=== PATIENT | male | born 1955 | race Caucasian/White ===

== ENCOUNTER 2016-10-28 06:33 | Inpatient (IN) | payer MEDICAID ==
[~2016-10-28] VITALS: Ht 203.2 cm; Wt 121.6 kg
--- NOTE | ~2016-10-28 | DS ---
PATIENT'S NAME: MOOKIE MOHAN [facility] AGE: 61 Y [address] ROOM: G6311 [place], [place] [address] LOCATION: GPCU ADMIT DATE: 10/28/2016 Discharge Summary DISCHARGE DATE: 10/30/2016 FAMILY PHYSICIAN: Rodrigue Garcia MD ATTENDING PHYSICIAN: Ml Pal ADMITTING DIAGNOSES: 1. Non-ST segment elevation myocardial infarction. 2. Ischemic cardiomyopathy. 3. Atrial fibrillation. DISCHARGE DIAGNOSES: 1. Ischemic cardiomyopathy with ejection fraction 10% on discharge with LifeVest and core measures. 2. Atrial fibrillation, on Eliquis. 3. Non-ST segment elevation myocardial infarction. SECONDARY DIAGNOSES: 1. Left ventricular apical thrombus, on apixaban. 2. Benign prostatic hyperplasia. 3. Hypertension. 4. History of coronary artery disease. PROCEDURE: Coronary angiogram done on 10/29/2016. CONSULTATION: Cardiology. HISTORY OF PRESENT ILLNESS: The patient is a 61-year-old male, who presented with roughly 10-day history of chest tightness. Chest tightness was associated with dyspnea. The patient was seen at [facility] and was transferred here for further evaluation. At [facility], the patient did not show any acute ischemia. EKG showed new onset of atrial fibrillation and troponin of 0.81. The patient was transferred here for further cardiac evaluation. The patient was admitted and was started on heparin drip. There was a concern for a PE. The patient had a CT angiogram, which is negative for PE. The patient had an echocardiogram that shows ejection fraction of 20%, which was decreased from 35%. The patient had coronary angiogram done on 10/29/[address] Rachna Trivedi, which showed proximal LAD stent patent and mid RCA 40%, unchanged from previous test, which was 10/2015. Apical thrombus was also noted. The patient was transferred back to the floor. The patient's chest pain resolved during stay. The patient's anticoagulation was changed to apixaban. Cardioversion was not done due to the patient's LV thrombus. The patient was started on beta-shantell, Entresto, and Lasix. Plan to continue aspirin and statin. Also, the patient was seen and evaluated by [facility]. The patient was discharged on [employer] for approximately to PATIENT'S NAME: MOOKIE MOHAN [facility] AGE: 61 Y [address] ROOM: G63[address] [place], [place] [address] LOCATION: GPCU ADMIT DATE: 10/28/2016 Discharge Summary DISCHARGE DATE: 10/30/2016 FAMILY PHYSICIAN: Rodrigue Garcia MD ATTENDING PHYSICIAN: Ml Pal have it for 3 months until re-evaluated as outpatient for possible ICD placement. The patient received education from [employer]. CONDITION: Stable. DISPOSITION: Home. DISCHARGE MEDICATIONS: Please see MAR. DISCHARGE INSTRUCTIONS: Follow up with Cardiology and primary care physician. RECOMMENDATIONS: Continue to use LifeVest. FOLLOWUP: To follow up with Cardiology, Dr. Rachna Trivedi and the primary care physician. The patient to have repeat renal function panel on November 05, 2016 before he sees his primary care physician. Greater than 30 minutes was spent on discharge planning. MD MEHUL JONES/gonzalo /[id number] d: 10/31/16 0451 t: 11/03/16 0935, DISCHARGE SUMMARY
--- NOTE | ~2016-10-28 | ECHO ---
Transthoracic Echocardiography Report (TTE) Demographics Patient Name MOOKIE MOHAN Date of Study 10/28/2016 Patient Number [id number] Visit Number [id number] Date of 1955 Room Number G6311 Gender Male Number Age 61 year(s) Referring Kae Bull Mine Inspector Darrel Landry RVT Physician MD Jhoana Spain MD Physician Interpreting Kae Bull Ring Making Machine Operator Physician Supervising Ordering Jhoana Spain MD, MD/MLP Physician Nurse [employer] Service Porter Conclusions Summary Technically difficult exam. The estimated left ventricular ejection fraction is 20%.The left ventricle is moderately dilated and globular .Mild concentric left ventricular hypertrophy.Moderate inferoposterior hypokinesia and akinesia involving the rest of LV segments. Moderate LA dilatation. Mild MR. Mobile LV apical thrombus. Mildly reduced right ventricular function. The right atrium is mildly dilated. Mild mitral annular calcification. Mild tricuspid regurgitation by color Doppler. Trivial pulmonic valve regurgitation by color Doppler. Procedure Type of Study TTE procedure:2D Echocardiogram, Echo with Contrast. Procedure Date Date: 10/28/2016 Start: 08:58 AM Study Location: Inpatient Portable Technical Quality: Limited visualization Indications:Atrial fibrillation. Patient Status: Routine Contrast Medium: Definity. Amount - 2 ml HR: 85 bpm BP: 112/84 mmHg Allergies - Penicillin. M-Mode/2D Measurements LV Diastolic Dimension: 6.51 cm LV Systolic Dimension: 5.55 cm LV Septum Diastolic: 1.12 cm LV PW Diastolic: 1.4 cm AO Root Dimension: 2.6 cm Cardiac Output: 2.97 l/min AV Cusp Separation: 2.5 cm RV Diastolic Dimension: 3.13 cm LVOT: 2.1 cm LVOT VTI: 10.1 cm RV Base: 3.51 cm LV Stroke volume: 34.96 ml RV Length: 7.17 cm TAPSE: 1.18 cm TDI-S': 8.77 cm/s Doppler Measurements AV Peak Velocity: 1.02 m/s MV Peak E-Wave: 0.81 m/s AV Peak Gradient: 4.16 mmHg AV Mean Gradient: 2 mmHg MV P1/2t: 41 msec LVOT Peak Velocity: 0.61 m/s TR Velocity:2.99 m/s PV Peak Velocity: 0.81 m/s TR Gradient:35.76 mmHg PV Peak Gradient: 2.6 mmHg E' Septal Velocity: 0.06 m/s E' Lateral Velocity: 0.09 m/s Findings Left Ventricle The left ventricle is mildly dilated . Mild concentric left ventricular hypertrophy.LVEF:20%.Moderate inferoposterior segment hypokinesia.Rest of LV segments are severely hypokinetic. Right Ventricle Mildly reduced right ventricular function. Left Atrium The left atrium is moderately dilated. Right Atrium The right atrium is mildly dilated. IVC not visualized due to poor subcostal window. Mitral Valve Mild mitral annular calcification. Mild mitral regurgitation by color Doppler. Aortic Valve Normal aortic valve structure and function. Tricuspid Valve Mild tricuspid regurgitation by color Doppler. Pulmonic Valve Trivial pulmonic valve regurgitation by color Doppler. Pericardial Effusion No evidence of pericardial effusion. Miscellaneous Visualized portions of the aortic root and ascending aorta appear normal in size. Pleural Effusion No evidence of pleural effusion. Contractility Score LV regional wall motion:(0-Non visualized 1-Normal 2-Hypokinesis 3-Akinesis 4-Dyskinesis 5-Aneurysm) Signature dtt: Ml Pal dtd: 10/28/16 0858 Physician Self Edit
--- NOTE | ~2016-10-28 | CATH ---
Cardiac Diagnostic Report Demographics Patient Name MARQUES MILES Gender Male Date of 1955 Age 61 year(s) Patient Number [id number] Date of Study 10/29/2016 Visit Number [id number] Room Number G63[address] [place] [id number] Ht 203.2 cm Wt 121.56 kg Referring [facility] Primary Physician Physician Rachna KEY Performing [facility] Secondary Physician Physician Rachna KEY Diagnostic [facility] Assisting Physician Physician Rachna KEY Interventional Physician Rendering Equipment Tender Physician Findings and Conclusions Diagnostic Findings and Conclusion Proximal LAD stent is patent Mid RCA 40% (unchanged from previous cath in 10/2015) Diagnostic Recommendations Continue guideline directed medical therapy for CAD and CHF Life vest upon dismissal, recheck LVEF 90 days after optimizing bb/kar i and assess need for ICD Patient 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 Informed consent was obtained in the written and verbal form after the risks and benefits were explained. The patient had no further questions and agreed to proceed. The planned puncture-incision site(s) were shaved and prepped with ChloraPrep and draped in the usual sterile manner. Conscious sedation, supplemental oxygen, and pain control medications were delivered by a registered nurse under physician guidance. Surface ECG rhythm, blood pressure measurement, and pulse oximetry were monitored throughout the procedure. Arterial access. The access site was infiltrated with lidocaine. The vessel was entered with the Seldinger technique. A sheath was advanced into the vessel and used for catheter placement. Selective left coronary angiography. A catheter was advanced into the left coronary vessel ostium under Fluoroscopic guidance. Contrast was injected by hand. Images were obtained in multiple projections. Selective right coronary angiography. A catheter was advanced into the right coronary vessel ostium under fluoroscopic guidance. Contrast was injected by hand. Images were obtained in multiple projections. Arterial artery hemostasis was achieved. The patient was transferred to a regular nursing floor via cart accompanied by a nurse. The patient left the laboratory in stable condition. Diagnostic Cath Status: Urgent Procedure Procedure Type Diagnostic procedure:Angiography:, Coronary Angios Indications: Angina and Atrial fibrillation. The procedure was explained in detail to the patient. Risks, complications and alternative treatments were reviewed. Written consent was obtained. Medications Reviewed with Patient prior to Procedure. Angiographic Findings Dominance: Right Cardiac Arteries and Lesion Findings LMCA: Normal (0% Stenosis). LAD: Abnormal.prox stent patent mid 20% Diag wnlThere is a previous stent on Mid LAD Proximal subsection. Lesion on Mid LAD: Mid subsection.20% stenosis . LCx: Abnormal.prox 10% OM wnl Lesion on Prox CX: Proximal subsection.10% stenosis . RCA: Abnormal.mid 40% (unchanged) PL and PDA wnl Lesion on Mid RCA: Mid subsection.40% stenosis . Coronary Tree Procedure Data Procedure Date Date: 10/29/2016Start: 10:15 AMEnd: 10:45 AM Entry Locations - Retrograde Percutaneous access was performed through the Right Radial artery (Primary location). A 6 Fr sheath was inserted. Hemostasis was successfully obtained using Mechanical Compression. Closure Comments: r band with 10 cc air in band deployed by Ramona. Procedure Medications Order and Administration + + + + + !Time !Medication !Dosage !Route ! + + + + + !10/29/2016 10:14 AM !Versed !0.5 mg !I.V. ! + + + + + !10/29/2016 10:14 AM !Fentanyl !25 mcg !I.V. ! + + + + + !10/29/2016 10:19 AM !Versed !0.5 mg !I.V. ! + + + + + !10/29/2016 10:24 AM !Heparin (ACC_3) !4000 units !I.V. bolus ! + + + + + Devices Used - A5 Fr. BS MPA2 Diag. Catheterwas used for:Right coronary angiography. - A6 Fr. SCR 3.5 Guide Catheterwas used for:Right coronary angiography. - A6 Fr. XB 3.5 Guide Catheterwas used for:Left coronary angiography. Contrast Material - Isovue 89107 ml Fluoroscopy Time: Diagnostic: 6:42 minutes. Total: 6:42 minutes. Fluoroscopy Dose: Diagnostic: 862 mGy. Total: 862 mGy. Estimated Blood Loss: 10 ml. Medical History Allergies - Penicillin. - Penicillin. Risk Factors The patient risk factors include:prior PCI on 11/08/2015;obesity, physical activity, hypercholesterolemia, treated hypertension, family history of premature CAD, last creatinine: 0.9 mg/dl, creatinine clearance: 146.33 ml/min, dyslipidemia, former tobacco use, prior heart failure and prior CT . Admission Data Admission Date: 10/28/2016 Admission Time: 07:26 AM Admit Source: Transfer acute care facility Admission Medications + +------+------+ + + + + !Medication !Dosage!Times !Last !Last !Administered !Comments ! ! ! !Per !Delivery !Delivery ! ! ! ! ! !Day !Date !Time ! ! ! + +------+------+ + + + + !Beta ! ! ! ! ! ! ! !Aidee ! ! ! ! ! ! ! !(any) ! ! ! ! ! ! ! + +------+------+ + + + + !Aspirin ! ! ! ! ! ! ! !(any) ! ! ! ! ! ! ! + +------+------+ + + + + !Statin ! ! ! ! ! ! ! !(any) ! ! ! ! ! ! ! + +------+------+ + + + + Clinical Evaluation Leading to Procedure - The patient's CAD presentation was assessed as: Unstable angina. - The patient's anginal syndrome during the past two weeks was assessed as: Class IV according to the [place] Cardiovascular Society Classification System (CCS). Anti-anginal medications were prescribed during the past two weeks. The medication is: Beta Blockers. - The patient has been in a state of heart failure within the past two weeks. - The patient's heart failure status was assessed as NYHA Class II, with CHF symptoms of ROMERO. 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 VA LV function assessed as:Abnormal. Ejection Fraction - Method: Echocardiography. EF%: 10. Hemodynamics Condition: Rest O2 Consumption: Estimated: 322.00Heart Rate: 88 bpm Pressures (mmHg) +-----+ + !Site !Pressure ! +-----+ + !AO !107/77 (92) ! +-----+ + Shunts Oxygen Values O2 Capacity 189.04 O2 Consumption 322 Signatures dtt: RACHNA EASTMAN dtd: 10/29/16 1015 Physician Self Edit
--- NOTE | ~2016-10-28 | CON ---
PATIENT'S NAME: MOOKIE MOHAN [facility] AGE: 61 Y [address] ROOM: G63[address] [place], [place] [address] LOCATION: GPCU ADMIT DATE: 10/28/2016 Consultation DISCHARGE DATE: FAMILY PHYSICIAN: PHYSICIAN, UNKNOWN ATTENDING PHYSICIAN: Ml Pal DATE OF CONSULTATION: 10/28/2016 HISTORY OF PRESENT ILLNESS: Mr. Mohan is a 61-year-old male patient who was transferred from [facility] by ground ambulance where he presented with heaviness in his chest along with some shortness of breath. The patient had acute anterior wall ST- elevation AR in October of 2015, which was treated initially with thrombolytic therapy which failed to re-perfuse. The patient underwent rescue PCI with a drug-eluting stent at that time and his discharge EF was 35% to 40%. He completed his cardiac rehab and continues to exercise on a regular basis. He works out on a treadmill for about 22 minutes at 9.6% gradient, walking at 3.6 miles an hour for 22 minutes along with weight training three days a week. Until about 10 days ago, he did not have any symptoms with exercise. However, 10 days back, he started to notice some heaviness in his chest along with significant shortness of breath to the point where he was in functional class III and having been having some orthopnea and paroxysmal nocturnal dyspnea in the last few days. Last night, he could not sleep at all and he eventually ended up going to the emergency room and the heaviness in his chest lasted almost 5-6 hours. In the emergency room at [facility], he was given 2 mg of morphine sulfate and his chest discomfort resolved completely. His troponins were elevated, so he was given aspirin and heparin, and his D-dimer is elevated and so a CT chest PE protocol was done today, which revealed no evidence of pulmonary emboli, but showed some evidence of congestive heart failure. His echo shows his ejection fraction to be 20% with apical thrombus, which is somewhat mobile at this time. The patient had at the time of his AR mostly left arm pain without any chest pain and he was profusely sweating. It almost as appears as if he had left arm pain for almost two full days before he ended up coming to the hospital. He initially mistook the left arm pain for cervical radicular pain which he has had chronically for a number of years. The patient denies any ankle swelling. He is occasionally lightheaded. He does notice some palpitations of short duration, it has been going on for about a year and a half. He is not sure when he went into atrial fibrillation. The patient has no history of hypertension or diabetes. He quit smoking 30 years ago and he is on cholesterol-lowering statins. He denies family history PATIENT'S NAME: MOOKIE MOHAN [facility] AGE: 61 Y [address] ROOM: [address] [place] [id number] LOCATION: [facility] ADMIT DATE: 10/28/2016 Consultation DISCHARGE DATE: FAMILY PHYSICIAN: PHYSICIAN, UNKNOWN ATTENDING PHYSICIAN: Ml Pal premature coronary artery disease. The patient has no history of rheumatic fever. He has a history of heart murmur. At some point, he was told that he had mild congestive heart failure before his discharge last year. MEDICATIONS: 1. Proscar 5 mg at bedtime. 2. Furosemide 40 mg a day. 3. Aspirin 81 mg a day. 4. Atorvastatin 20 mg at bedtime. 5. Carvedilol 3.125 b.i.d. 6. Losartan 25 mg a day. ALLERGIES: PENICILLIN. PAST MEDICAL HISTORY: 1. Neck surgery. 2. Two back surgeries. 3. Left groin lymph node removal. 4. Benign prostatic hypertrophy. 5. DJD of knees. SOCIAL HISTORY: The patient is disabled from his back. He is single. He denies abusing alcohol or recreational drugs now. His appetite has been good. He has lost about 35 pounds in weight since his last year procedure intentionally. FAMILY HISTORY: No premature coronary artery disease. REVIEW OF SYSTEMS: 1. Sinus problems. 2. Corrective lenses. 3. History of heartburns which has gotten better since his weight loss. 4. History of dysphagia in the past, especially in noticeable in the epigastric area which is nonprogressive. 5. History of stomach ulcers with the hematemesis in the distant past. 6. Depression. PHYSICAL EXAMINATION: VITAL SIGNS: On examination, his blood pressure is 136/85, heart rate is 80 and irregular, respirations 20, afebrile. HEENT: Normal. PATIENT'S NAME: MOOKIE MOHAN [facility] AGE: 61 Y [address] ROOM: G[address] [place], [place] [address] LOCATION: GPCU ADMIT DATE: 10/28/2016 Consultation DISCHARGE DATE: FAMILY PHYSICIAN: PHYSICIAN, UNKNOWN ATTENDING PHYSICIAN: lM Pal NECK: Supple with no JVD, thyromegaly, lymphadenopathy, or carotid bruit. PMI is not well located. First and second heart sounds are irregular. There are no added sounds or murmurs. CHEST: Clear to auscultation. ABDOMEN: Soft and nontender. EXTREMITIES: Reveal no edema. CENTRAL NERVOUS SYSTEM: Intact. ASSESSMENT: 1. Coronary artery disease, status post myocardial infarction about a year ago, was treated with rescue PCI. 2. EF last year was 35-40% and now it is 20%. 3. Left ventricular apical thrombus which is mobile. 4. Congestive heart failure clinically at this time. 5. Recent onset of atrial fibrillation, which is most likely what changes clinical condition 10 days back. However what caused his EF to drop is unclear and he probably needs a catheterization. 6. Increased D-dimer checked with a CT chest PE protocol, which was negative for pulmonary embolism. Because of the dye load and as he is pain free, we will keep him n.p.o. tomorrow morning and see if Dr. Murray would be willing to take him to the cath either tomorrow or later. For now, I try to monitor, keep him symptom free on heparin, and keep him on very little fluid intake. We will check his BMP in the morning. Dr. Murray will assume care in the morning. Again, I appreciate this opportunity to participate in the care of Mr. Mohan. MD JOSH PAIGE/gonzalo /[id number] d: 10/28/16 1506 t: 10/28/16 1759, CONSULTATION REPORT
--- NOTE | ~2016-10-28 | ENPV ---
Vascular Lower Extremities DVT Study Procedure Demographics Patient Name MOOKIE MOHAN Date of Study 10/28/2016 Patient Number [id number] Gender Male Date of 1955 Age 61 Visit Number [id number] Height 80 Accession Number [id number] Weight 268.01 Referring Jhoana Spain MD Interpreting Shun Bridges MD Physician Physician Physician Ordering Physician Jhoana Spain MD Slicing Machine Operator/Tender Ceramic Tiler Darrel Landry T Conclusions Summary No evidence of deep vein thrombosis in the lower extremities bilaterally . Procedure Type of Study: Veins:Lower Extremities DVT Study, Venous Duplex Lower Extremity Bilateral. Additional Indications:High D Dimer Appropriate Use Criteria:9 Allergies - Penicillin. - Penicillin. Patient Status:Routine. Study Location:Inpatient Portable. Technical Quality:Adequate visualization. Risk Factors - The patient's risk factor(s) include: dyslipidemia, obesity, lack of physical activity, treated arterial hypertension and prior MN . - The patient has a former tobacco history. - The patient's last creatinine was 0.9 mg/dl. Velocities are measured in cm/s ; Diameters are measured in cm Right Lower Extremities DVT Study Measurements Right 2D and Doppler Measurements + + + + +------+------+ + !Location !Visualized!Compressibility!Thrombosis!Signal!Reflux!Reflux ! ! ! ! ! ! ! !(sec) ! + + + + +------+------+ + !GSV Thigh !Yes !Yes !None !Phasic! ! ! + + + + +------+------+ + !Common !Yes !Yes !None !Phasic! ! ! !Femoral ! ! ! ! ! ! ! + + + + +------+------+ + !Prox !Yes !Yes !None !Phasic! ! ! !Femoral ! ! ! ! ! ! ! + + + + +------+------+ + !Mid Femoral!Yes !Yes !None !Phasic! ! ! + + + + +------+------+ + !Dist !Yes !Yes !None !Phasic! ! ! !Femoral ! ! ! ! ! ! ! + + + + +------+------+ + !Popliteal !Yes !Yes !None !Phasic! ! ! + + + + +------+------+ + !Gastroc !Yes !Yes !None !Phasic! ! ! + + + + +------+------+ + !PTV !Yes !Yes !None !Phasic! ! ! + + + + +------+------+ + !Peroneal !Yes !Yes !None !Phasic! ! ! + + + + +------+------+ + Left Lower Extremities DVT Study Measurements Left 2D and Doppler Measurements + + + + +------+------+ + !Location !Visualized!Compressibility!Thrombosis!Signal!Reflux!Reflux ! ! ! ! ! ! ! !(sec) ! + + + + +------+------+ + !GSV Thigh !Yes !Yes !None !Phasic! ! ! + + + + +------+------+ + !Common !Yes !Yes !None !Phasic! ! ! !Femoral ! ! ! ! ! ! ! + + + + +------+------+ + !Prox !Yes !Yes !None !Phasic! ! ! !Femoral ! ! ! ! ! ! ! + + + + +------+------+ + !Mid Femoral!Yes !Yes !None !Phasic! ! ! + + + + +------+------+ + !Dist !Yes !Yes !None !Phasic! ! ! !Femoral ! ! ! ! ! ! ! + + + + +------+------+ + !Popliteal !Yes !Yes !None !Phasic! ! ! + + + + +------+------+ + !Gastroc !Yes !Yes !None !Phasic! ! ! + + + + +------+------+ + !PTV !Yes !Yes !None !Phasic! ! ! + + + + +------+------+ + !Peroneal !Yes !Yes !None !Phasic! ! ! + + + + +------+------+ + Signature dtt: RODO ESCOBAR dtd: 10/28/16 0947 Physician Dominik Chávez
--- NOTE | ~2016-10-28 | HP ---
PATIENT'S NAME: MOOKIE MOHAN [facility] AGE: 61 Y [address] ROOM: [address] [place], [place] [address] LOCATION: GPCU ADMIT DATE: 10/28/2016 History & Physical DISCHARGE DATE: FAMILY PHYSICIAN: PHYSICIAN, UNKNOWN ATTENDING PHYSICIAN: Ml Pal DATE OF SERVICE: CHIEF COMPLAINT: Chest tightness and also dyspnea on exertion and also at rest. HISTORY OF PRESENT ILLNESS: This is a 61-year-old male, who states that roughly 10 days ago, he has been experiencing chest tightness in the mid chest area, about 3-5/10 in intensity, localized on and off, lasting for few minutes, initially with exertion, but recently has been coming also at rest. At the same time, the chest tightness is also associated with dyspnea, also initially with exertion and right now also progressed with rest. His symptoms worsened last night, that is why the patient went to outside facility in [place] for evaluation. He also says that for the last few weeks, he has been experiencing pain in bilateral posterior calves. He denies any recent long distance travel or any trauma or prolonged immobilization. Over there at the [facility], the patient's EKG did not show any acute ischemia. EKG was also found to have new onset atrial fibrillation that was not diagnosed previously, heart rate was 100 beats per minute. Troponin was found to be elevated, the first set at 0.81, this is troponin I; CPK and CK-MB were normal. His creatinine was found to be 1.33, and his GFR was found to be 54. When compared to his prior blood work in October last year, this is OWEN. D- dimer was also found to be elevated at 3.76 over there. Because of this, the patient was given 1 dose of a full dose aspirin followed by 2 mg IV morphine and also followed by 1 tablet of sublingual nitroglycerin. The patient's chest tightness totally resolved. The patient was also started on IV heparin bolus followed by drip. Due to the concern of ACS and also concern for PE or DVT, the patient was referred here for further care. REVIEW OF SYSTEMS: As mentioned in the history of present illness. All other systems were reviewed and they were negative except those mentioned in the history of present illness. PAST MEDICAL HISTORY: 1. Combined systolic and diastolic heart failure. The most recent echo was on October 28, 2015, which showed EF of 35% to 40% and grade 2 pseudonormal diastolic function. PATIENT'S NAME: MOOKIE MOHAN [facility] AGE: 61 Y [address] ROOM: [id number] [place], [place] [address] LOCATION: [facility] ADMIT DATE: 10/28/2016 History & Physical DISCHARGE DATE: FAMILY PHYSICIAN: PHYSICIAN, UNKNOWN ATTENDING PHYSICIAN: Ml Pal 2. History of STEMI anterolateral leads, status post 1 drug-eluting stent to the proximal LAD. At that time, the cardiac cath on October 27, 2015 showed proximal LAD 100% occlusion and moderate occlusion in mid RCA 50%. 3. Hyperlipidemia. 4. Hypertension. 5. Benign prostatic hypertrophy. ALLERGIES: PENICILLIN, WHICH CAUSES SEIZURE. HOME MEDICATIONS: Currently, it has been reconciled. SOCIAL HISTORY: The patient was a former cigarette smoker. He quit about 20 years ago. He used to smoke about 3 packs per day since he was 10 years' old. He denies any alcohol or any illegal drug use. PAST SURGICAL HISTORY: 1. Status post back and neck surgery in the past. 2. Status post 1 drug-eluting stent to the proximal LAD in October 2015. FAMILY HISTORY: Mother is healthy. Father from stroke at age 67-year-old. He denies any cardiac problem in his mother or his father. PHYSICAL EXAMINATION: VITAL SIGNS: At the time of my dictation, temperature 98, heart rate 80, respirations 20, blood pressure 136/85, and saturation 95% on room air. GENERAL APPEARANCE: Alert and oriented x3. Currently in no acute distress. Also, denies any chest pain. HEENT: Pupils equally round and reactive to light. Extraocular muscles intact. Anicteric sclerae. Nasal turbinates are normal bilaterally. Moist oral mucosa. NECK: No JVD. CARDIOVASCULAR: No murmur, no rubs, no gallops. Normal S1, S2. Regular rate and rhythm. RESPIRATORY: Clear to auscultation. No rales, no rhonchi, no wheezing, no crackles. ABDOMEN: Soft, nontender, nondistended. Bowel sounds present. No mass. EXTREMITIES: No edema in the upper or lower extremities. Some mild tenderness to palpation in bilateral posterior calves. NEUROLOGIC: Grossly nonfocal. SKIN: No ulcer, no rash, no cyanosis. PATIENT'S NAME: MOOKIE MOHAN [facility] AGE: 61 Y [address] ROOM: [id number] [place], [place] [address] LOCATION: GPCU ADMIT DATE: 10/28/2016 History & Physical DISCHARGE DATE: FAMILY PHYSICIAN: PHYSICIAN, UNKNOWN ATTENDING PHYSICIAN: Ml Pal LABORATORY DATA: Currently, all labs are pending, they have just been drawn. Blood work from the outside facility shows white blood cells 9.98, hemoglobin 15, hematocrit 44.9, and platelets 132. Glucose 94, BUN 21, creatinine 1.33, total protein 7.1, albumin 3.6, calcium 9.0, total bilirubin 1.4, ALT 42, AST 18, sodium 138, potassium 4.3, chloride 105, CO2 of 27.8, GFR of 54, anion gap 9.5, alkaline phosphatase 73, CPK 60, CK-MB 0.8, myoglobin 64, troponin 0.81, D- dimer 3.76, magnesium 1.8, INR 1.1, PTT 23.7. IMAGING STUDIES: EKG on admission from the outside facility on October 28, 2016, at 3:42 a.m. shows atrial fibrillation, heart rate of 100, QRS 95. No ST elevation or depression. Repeat EKG here in our facility on arrival on October 28, 2016, at 8:06 a.m. shows atrial fibrillation, heart rate of 75, QRS of [address]- elevation or depression. ASSESSMENT AND PLAN: 1. Regarding his troponin elevation and D-dimer elevation: Differential could be acute coronary syndrome and/or pulmonary embolism or deep vein thrombosis. Plan will be to continue the current IV heparin drip. We will do acute coronary syndrome protocol, and we will get an echo and also EKG if he has chest pain again, and also start a nitroglycerin drip IV if he has chest pain. Currently, he is chest pain free. Cardiology consult for chest tightness. Continue medications with aspirin, Lipitor, and Coreg. The patient's Plavix was stopped last month. 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 N.p.o. for now. I will also get blood work and also go for the CT pulmonary angiogram and also venous duplex ultrasound. Further plan will depend on clinical course. IV morphine p.r.n. for pain as well. We will also cycle cardiac enzymes every 6 hours. In addition for the chest tightness, I will get a chest x- ray as well. 2. Regarding his acute kidney injury: For now, I will give him some IV fluid hydration. He does not look volume overloaded. I will hold the losartan for now in the setting of acute kidney injury. Further plan will depend on clinical course. 3. Regarding his history of combined systolic and diastolic heart failure: Currently, the patient seems euvolemic. ProBNP is pending. The patient is on room air. Lungs are clear. No leg edema. Hold the Lasix for now in the setting of acute kidney injury. Further plan will depend on clinical course. Echo will be done today to see what is his ejection fraction at this time. 4. Regarding his history of ST-segment elevation myocardial infarction, PATIENT'S NAME: MOOKIE MOHAN [facility] AGE: 61 Y [address] ROOM: [address] [address] LOCATION: [facility] ADMIT DATE: 10/28/2016 History & Physical DISCHARGE DATE: FAMILY PHYSICIAN: PHYSICIAN, UNKNOWN ATTENDING PHYSICIAN: Ml Pal status post 1 drug-eluting stent to the left anterior descending artery on October 27, 2015: See #1 for all the details. 5. Regarding his hypertension: Continue home medication as mentioned before. 6. Regarding his hyperlipidemia: Continue Lipitor. We will check A1c and also lipid panel in the morning. 7. Regarding his deep vein thrombosis prophylaxis: The patient is on heparin drip already. 8. He is a full code. Time spent in care on the day of admission 35 minutes, where 15 minutes was spent on the chart review and the remainder of the time was spent on interview, physical examination, and also addressing all the questions and concerns that the patient had, and going over the plan of care with the patient. I answered all of his questions to his satisfaction. I also went over the plan of care in detail with the nurse as well. Further plan will depend on clinical course. MD HAYLEE ACUÑA/gonzalo /[id number] D: [id number] T: [id number] HISTORY & PHYSICAL
[~2016-10-28 06:33] MED LIST: ASPIRIN (CHILDR81 MG PO; COREG 3.1253.125 MG PO; CRESTOR10 MG PO; FLONASE 50 MCG/16 GM NOSE; IBUPROFEN800 MG PO; LASIX40 MG PO; LIPITOR20 M1 PO; LOPRESSOR50 MG; NAPROSYN500 MG PO; NEXIUM40 MG PO; NORCO 5-325 MG1 TAB PO; PLAVIX75 MG PO; PRILOSEC20 MG PO; PROSCAR5 MG PO; TOPROL XL 5050 MG PO; VASOTEC2.5 MG PO; ZOCOR20 MG PO
[2016-10-28] MEDS ORDERED: COZAAR25 MG PO (07:30)
--- NOTE | 2016-10-28 08:00 | NUR ---
Patient admitted from [facility] for increased shortness of breath, chest pressure, and new onset atrial fibrillation. Patient has noticed an increase in shortness of breath over the last 2 weeks. Awoke with chest pressure at 0600 and went to the ED, found to be in A-fib. Transferred here for work-up. Pain free on arrival, remain in a-fib. IV to right forearm with heparin infusing. ORA, VSS. Denies pain, shortness of breath, N/V. History of MS last October with LAD occlusion. CT for PE protocol, echo, venous dopplers, and cardiac consult pending.
[2016-10-28 08:44] LABS: BASOPHIL % 0.5 %; EOSINOPHIL # 0.1 K/uL (0.0-0.5); EOSINOPHIL % 1.1 %; HEMATOCRIT 42.4 % (37.0-53.0); HEMOGLOBIN 13.9 g/dL (11.0-16.0); IMMATURE GRANULOCYTE % 0.3 %; LYMPHOCYTE # 1.3 K/uL (0.8-4.0); LYMPHOCYTE % 17.1 %; MCH 29.9 pg (27.0-34.0); MCHC 32.8 gm/dL (32.0-36.5); MCV 91.2 fl (83.0-98.0); MONOCYTE # 0.7 K/uL (0.0-1.0); MONOCYTE % 9.7 %; NEUTROPHIL # (ANC) 5.4 K/uL (1.4-9.0); NEUTROPHIL % 71.3 %; NRBC % 0 /100WBC (0-0.00); PLATELET COUNT 115 K/uL (150-450); RBC 4.65 M/uL (3.50-5.50); RDW-CV 14.5 % (11.9-14.6); WBC 7.5 K/uL (4.0-11.0)
[2016-10-28 08:47] LABS: PROTIME 11.6 SECONDS (9.8-11.4); PTT 41 SECONDS (25-32)
[2016-10-28 08:55] LABS: ALBUMIN 3.5 gm/dL (3.5-5.0); ALK PHOS 68 IU/L (33-138); ALT 37 IU/L (12-78); ANION GAP 10.2 (10.0-19.0); AST 19 IU/L (10-40); BLOOD UREA NITROGEN 19 mg/dL (6-24); CALCIUM 8.4 mg/dL (8.5-10.5); CHLORIDE 108 mMol/L (96-110); CO2 26 mMol/L (22-32); CPK 59 IU/L (35-332); CREATININE 1.2 mg/dL (0.6-1.3); ESTIMATED GFR (MDRD EQUATION) > 60; MAGNESIUM 2.2 mg/dL (1.8-2.6); POTASSIUM 4.2 mMol/L (3.7-5.1); SODIUM 140 mMol/L (135-145); TOTAL BILIRUBIN 1.4 mg/dL (0.0-1.5); TOTAL PROTEIN 6.7 g/dL (6.0-8.4)
--- NOTE | 2016-10-28 17:40 | NUR ---
Significant Event: PT A&O x3, anxious at times. VSS, on room air. Nitro started at 1600 for c/o chest heaviness. Claritan and nasal saline ordered. PT ambulates with SBA. NPO after midnight for possible heart cath tomorrow. Follow up:
--- NOTE | 2016-10-29 04:40 | NUR ---
Significant event: A/O x 3. up with SBA in room. NO c/o chest pain, nitro gtt off at 0200. heparin drip running at 1500units with the next ptthp to be drawn at 0755. Patients biggest complaints so far has been his sinus congestion and his lack of sleep from that. Afarin nasal spray ordered which has seemed to help. Npo since midnight in case decides to take patient to cathlab in am. No permits have been printed yet.
[2016-10-29 05:11] LABS: ANION GAP 10.2 (10.0-19.0); BLOOD UREA NITROGEN 21 mg/dL (6-24); CALCIUM 8.5 mg/dL (8.5-10.5); CHLORIDE 108 mMol/L (96-110); CO2 24 mMol/L (22-32); CREATININE 0.9 mg/dL (0.6-1.3); ESTIMATED GFR (MDRD EQUATION) > 60; POTASSIUM 4.2 mMol/L (3.7-5.1); SODIUM 138 mMol/L (135-145)
[2016-10-29 09:41] LABS: INR - (THERAPEUTIC) 1.11 (0.92-1.07); PROTIME 11.7 SECONDS (9.8-11.4)
[2016-10-29 09:52] LABS: BASOPHIL % 0.6 %; EOSINOPHIL # 0.1 K/uL (0.0-0.5); EOSINOPHIL % 1.7 %; HEMATOCRIT 41.1 % (37.0-53.0); HEMOGLOBIN 13.7 g/dL (11.0-16.0); IMMATURE GRANULOCYTE % 0.4 %; LYMPHOCYTE # 1.1 K/uL (0.8-4.0); LYMPHOCYTE % 16.4 %; MCH 30.4 pg (27.0-34.0); MCHC 33.3 gm/dL (32.0-36.5); MCV 91.1 fl (83.0-98.0); MONOCYTE # 0.6 K/uL (0.0-1.0); MONOCYTE % 8.6 %; MPV 11.5 fl (9.4-12.4); NEUTROPHIL % 72.3 %; NRBC % 0 /100WBC (0-0.00); PLATELET COUNT 105 K/uL (150-450); RBC 4.51 M/uL (3.50-5.50); RDW-CV 14.5 % (11.9-14.6)
[2016-10-29 10:06] LABS: ALBUMIN 3.2 gm/dL (3.5-5.0); ALK PHOS 66 IU/L (33-138); ALT 30 IU/L (12-78); ANION GAP 11.3 (10.0-19.0); AST 15 IU/L (10-40); BLOOD UREA NITROGEN 20 mg/dL (6-24); CALCIUM 8.2 mg/dL (8.5-10.5); CHLORIDE 107 mMol/L (96-110); CO2 27 mMol/L (22-32); ESTIMATED GFR (MDRD EQUATION) > 60; POTASSIUM 4.3 mMol/L (3.7-5.1); SODIUM 141 mMol/L (135-145); TOTAL PROTEIN 6.3 g/dL (6.0-8.4)
[2016-10-29 10:10] LABS: TOTAL BILIRUBIN 1.1 mg/dL (0.0-1.5)
--- NOTE | 2016-10-29 12:45 | NUR ---
Introduced self/role to patient. He lives alone in [place]. His family doctor is Jose in [place]. He will need some assistance with medication due to their cost. Dr. Murray asked care management to look into which med would be covered. 1605 Called [place] [facility] [facility] and pharmacist plugged in medications and either would be covered due to patients Medicaid and disability coverage. He plugged in Eliquis and it went thru with a $4 co-pay. [address] Murray #[phone] and updated. 1615 co-worker Lila called patient to update.
--- NOTE | 2016-10-29 18:41 | NUR ---
Significant Event: A/O X3. UP WITH SBA. TO INVESTMENT OFFICER @ 7851, RETURNED @ 1266. NO INTERVENTION. RIGHT RADIAL SITE WNL, BANDAID AND COBAN INTACT, NEEDS RE-INFORCED ABOUT NOT USING RIGHT ARM. WILL NEED LIFE VEST ON DISCHARGE, [facility] CALLED AND PAPERS FAXED. HEPARIN GTT @ 1600 UNITS/HR, WILL NEED DC'D @ 2100 AFTER ELIQUIS DOSE GIVEN. ULTRAM GIVEN X1 FOR C/O BACK PAIN. Follow up:
--- NOTE | 2016-10-30 04:49 | NUR ---
Significant Event: Patient alert and oriented. Up ad ronnie. Heparin drip discontinued at 2100. Oral medications given per order. VSS on room air. Denies pain or abnormal sensation. Right radial cath site soft with good pulses noted. Pleasant and cooperative with cares. Follow up: continue to monitor
[2016-10-30] MEDS ORDERED: ELIQUIS5 MG PO (10:48)
[2016-10-30] MEDS ORDERED: CLARITIN10 MG PO (10:51)
[2016-10-30] MEDS ORDERED: AFRIN) (GENASAL15 ML NOSE (10:53)
[2016-10-30] MEDS ORDERED: PROTONIX40 MG PO (10:54)
[2016-10-30] MEDS ORDERED: ENTRESTO 24 MG1 EACH PO (10:55)
== END 2016-10-30 15:00 | disposition disaster alternative care site (69) | DRG 280 ==
LOC: GPCU 07:26
PROVIDERS: Internal Medicine; Internal Medicine Interventional Cardiology; ADMIT Internal Medicine Interventional Cardiology
DX: I21.4 Non-ST elevation (NSTEMI) myocardial infarction (principal); I50.41 Acute combined systolic (congestive) and diastolic (congestive) heart failure; N17.9 Acute kidney failure, unspecified; I42.9 Cardiomyopathy, unspecified; I25.10 Atherosclerotic heart disease of native coronary artery without angina pectoris; E78.5 Hyperlipidemia, unspecified; I48.91 Unspecified atrial fibrillation; Z95.5 Presence of coronary angioplasty implant and graft; Z87.891 Personal history of nicotine dependence; Z88.0 Allergy status to penicillin; N40.0 Benign prostatic hyperplasia without lower urinary tract symptoms; I11.0 Hypertensive heart disease with heart failure
CPT/HCPCS: A9270; C1887; C8929; J0583; J1644; J2250; J2270; J3010; J7030; J7042; J7060; Q9957; Q9967